=== PATIENT | female | born 1975 | race African-American/Black ===

== ENCOUNTER 2018-12-08 09:58 | Emergency (ER) | payer SELFPAY ==
[~2018-12-08] VITALS: Ht 167.6 cm; Wt 75.0 kg
[2018-12-08] MEDS ORDERED: IBUPROFEN 400MG TABLET PO ONE (11:15)
[2018-12-08] MEDS ORDERED: TETANUS, DIPHTHERIA, PERTUSSIS VAC/PF 0.5ML (>7YR OLD) IM ONE (11:15)
[2018-12-08] MEDS ORDERED: BACITRACIN ZINC OINT UDPKT TOP ONE (11:15)
[2018-12-08] MEDS ORDERED: HYDROCODONE/ACETAMINOPHEN 5/325MG TABLET PO ONE (11:15)
[2018-12-08 12:55] VITALS: BP 155/91
== END 2018-12-08 12:58 | disposition home or self-care (01) ==
LOC: ER 09:58
DX: S80.02XA Contusion of left knee, initial encounter (principal); S50.02XA Contusion of left elbow, initial encounter; I10 Essential (primary) hypertension; V23.4XXA Motorcycle driver injured in collision with car, pick-up truck or van in traffic accident, initial encounter; Y93.89 Activity, other specified; Y92.488 Other paved roadways as the place of occurrence of the external cause
CPT/HCPCS: 72170; 73080; 73562; 90471; 90715; 99283